=== PATIENT | female | born 1985 | race Caucasian/White ===

== ENCOUNTER 2018-12-14 00:45 | Emergency (ER) | payer MEDICAID ==
[~2018-12-14] VITALS: Ht 160 cm; Wt 122.7 kg
[2018-12-14 00:49] VITALS: BP 176/100
[2018-12-14] MEDS ORDERED: famotidine 20mg tablet PO ONE (02:20)
[2018-12-14] MEDS ORDERED: LIDOcaine Viscous 15ml cup PO ONE (02:20)
[2018-12-14] MEDS ORDERED: LORazepam 0.5 MG tablet PO PRN (02:20)
[2018-12-14] MEDS ORDERED: mag hydrox/Alum hydrox/simeth 30ml oral suspension PO ONE (02:20)
== END 2018-12-14 02:37 | disposition home or self-care (01) ==
LOC: ER 00:46
DX: K21.9 Gastro-esophageal reflux disease without esophagitis (principal); F41.9 Anxiety disorder, unspecified; Z98.890 Other specified postprocedural states; Z90.89 Acquired absence of other organs
CPT/HCPCS: 99283

== ENCOUNTER 2019-05-01 13:58 | Emergency (ER) | payer MEDICAID ==
[~2019-05-01] VITALS: Ht 162.6 cm; Wt 122.7 kg
[2019-05-01 14:11] VITALS: BP 164/73
[2019-05-01] MEDS ORDERED: LIDOcaine Viscous 15ml cup MM STA (15:09)
[2019-05-01] MEDS ORDERED: mag hydrox/Alum hydrox/simeth 30ml oral suspension PO ONE (15:10)
[2019-05-01] MEDS ORDERED: MAG355OR18 PO (15:40)
[2019-05-01] MEDS ORDERED: FAMO40TA86 PO (15:40)
[2019-05-01] MEDS ORDERED: LIDO20SO16 PO (15:40)
== END 2019-05-01 16:03 | disposition home or self-care (01) ==
LOC: ER 13:58
DX: R13.10 Dysphagia, unspecified (principal); K21.9 Gastro-esophageal reflux disease without esophagitis; Z98.890 Other specified postprocedural states; Z90.89 Acquired absence of other organs; Z79.899 Other long term (current) drug therapy
CPT/HCPCS: 99283

== ENCOUNTER 2019-07-27 09:41 | Outpatient (CLI) | payer MEDICAID ==
[~2019-07-27 09:41] MED LIST: FAMO40TA86 PO; LIDO20SO16 PO
== END 2019-07-27 23:59 | disposition home or self-care (01) ==
LOC: RAD 09:41
PROVIDERS: ATTEND Family Medicine
DX: R22.1 Localized swelling, mass and lump, neck (principal)
CPT/HCPCS: 74220

== ENCOUNTER 2023-08-24 05:22 | Emergency (ER) | payer BC, MEDICAID ==
[~2023-08-24] VITALS: Ht 162.6 cm; Wt 121.0 kg
[2023-08-24 05:57] VITALS: BP 144/80; PULSE 81; RESP 18; TEMP 98.2; O2SAT 100
[2023-08-24] MEDS ORDERED: CYCL-1 PO (07:29)
[2023-08-24] MEDS: cyclobenzaprine 10mg tablet PO ONE (08:04)
[2023-08-24] MEDS: ketorolac tromethamine 15mg/ml inj. IM ONE (08:11)
== END 2023-08-24 08:21 | disposition home or self-care (01) ==
LOC: ER 05:22
DX: S16.1XXA Strain of muscle, fascia and tendon at neck level, initial encounter (principal); M43.6 Torticollis; M54.2 Cervicalgia; K21.9 Gastro-esophageal reflux disease without esophagitis; Z79.899 Other long term (current) drug therapy; Z98.890 Other specified postprocedural states; X58.XXXA Exposure to other specified factors, initial encounter; Y93.89 Activity, other specified; Y92.89 Other specified places as the place of occurrence of the external cause; Y99.8 Other external cause status
CPT/HCPCS: 96372; 99283; J1885